=== PATIENT | female | born 1960 | race Caucasian/White ===

== ENCOUNTER 2019-04-11 12:56 | Inpatient (IN) | payer BC ==
[~2019-04-11] VITALS: Ht 170.2 cm; Wt 90.6 kg
[2019-04-11] VITALS (8 sets, daily range): BP systolic 139–159; BP diastolic 53–86
--- NOTE | 2019-04-11 13:54 | NUR ---
ATTEMPTED ISTAT AT BEDSIDE, INSUFFICIENT SUPPLY POPPED UP
[2019-04-11 14:16] LABS: BASOPHILS # (AUTO) 0.1 X10'3 (0-0.2); BASOPHILS % (AUTO) 1.1 % (0-1); EOSINOPHILS # (AUTO) 0.1 X10'3 (0-0.9); EOSINOPHILS % (AUTO) 1.1 % (0-6); LYMPHOCYTES # (AUTO) 0.9 X10'3 (1.1-4.8); LYMPHOCYTES % (AUTO) 10.9 % (21-51); MEAN CORPUSCULAR HEMOGLOBIN 13.4 PG (27.0-31.0); MEAN CORPUSCULAR HGB CONC 25.1 g/dL (33.0-36.5); MEAN CORPUSCULAR VOLUME 53.3 FL (78-98); MONOCYTES # (AUTO) 0.8 X10'3 (0-0.9); MONOCYTES % (AUTO) 10.5 % (2-12); NEUTROPHILS # (AUTO) 6.2 X10'3 (1.8-7.7); NEUTROPHILS % (AUTO) 76.4 % (42-75); PLATELET COUNT 325 X10'3 (140-440); RED BLOOD COUNT 2.25 X10'6 (4.20-5.60); RED CELL DISTRIBUTION WIDTH 23.1 % (11.5-14.5); WHITE BLOOD COUNT 8.1 X10'3 (4.5-11.0)
[2019-04-11 14:34] LABS: ALANINE AMINOTRANSFERASE 26 U/L (12-78); ALBUMIN 3.8 G/DL (3.4-5.0); ALBUMIN/GLOBULIN RATIO 1.1 (1.1-1.5); ALKALINE PHOSPHATASE 55 IU/L (46-116); ANION GAP 9 (8-16); ASPARTATE AMINO TRANSFERASE 13 U/L (10-37); BILIRUBIN,TOTAL 0.7 MG/DL (0.1-1.0); BLOOD UREA NITROGEN 27 MG/DL (7-18); CALCIUM 11.6 MG/DL (8.5-10.1); CHLORIDE 104 MMOL/L (99-107); CREATININE 1.59 MG/DL (0.40-0.90); GLUCOSE 126 MG/DL (70-104); POTASSIUM 4.2 MMOL/L (3.5-5.1); SODIUM 136 MMOL/L (135-145); TOTAL CARBON DIOXIDE 23.1 MMOL/L (24-32); TOTAL PROTEIN 7.2 G/DL (6.4-8.2); eGFR 33 ML/MIN
[2019-04-11 14:56] LABS: ANISOCYTOSIS 3+; HYPOCHROMASIA 3+; MICROCYTOSIS 3+; PLATELET ESTIMATE NORMAL; TOTAL CELLS COUNTED 100
[2019-04-11 14:57] LABS: ELLIPTOCYTES 1+; POLYCHROMASIA FEW; SCHISTOCYTES FEW; TEAR DROP CELLS FEW
[2019-04-11] MEDS ORDERED: HYDR12.55 PO (15:24)
[2019-04-11 15:50] LABS: PARTIAL THROMBOPLASTIN TIME > 153 SECONDS (22-32)
[2019-04-11 15:59] LABS: OCCULT BLOOD STOOL NEGATIVE (Neg)
--- NOTE | 2019-04-11 15:59 | NUR ---
PT TO CT VIA WHEELCHAIR WITH HOUSE MANAGER
[2019-04-11] MEDS ORDERED: ondansetron/PF 4mg/2ml inj IV PRN (16:45)
[2019-04-11] MEDS ORDERED: mag hydrox/Alum hydrox/simeth 30ml oral suspension PO PRN (16:45)
[2019-04-11] MEDS ORDERED: magnesium hydroxide 30ml (MOM) UD suspension PO PRN (16:45)
[2019-04-11] MEDS ORDERED: acetaminophen 325mg tablet PO PRN (16:45)
--- NOTE | 2019-04-11 16:54 | NUR ---
PT RETURNS FROM CT
--- NOTE | 2019-04-11 17:18 | NUR ---
INCREASED BLOOD RATE TO 200, IN AN ATTEMPT TO MEET THE 3 HR GOAL
[2019-04-11] MEDS ORDERED: furosemide 10 MG/1 ML 10ml inj IV ONE (18:05)
[2019-04-12] VITALS (14 sets, daily range): BP systolic 133–162; BP diastolic 50–70
[2019-04-12 02:18] LABS: BASOPHILS # (AUTO) 0.1 X10'3 (0-0.2); EOSINOPHILS # (AUTO) 0.1 X10'3 (0-0.9); EOSINOPHILS % (AUTO) 1.7 % (0-6); LYMPHOCYTES % (AUTO) 16.4 % (21-51); MEAN CORPUSCULAR HGB CONC 31.1 g/dL (33.0-36.5); MEAN CORPUSCULAR VOLUME 61.2 FL (78-98); MEAN PLATELET VOLUME 8.6 FL (7.4-10.4); MONOCYTES # (AUTO) 0.7 X10'3 (0-0.9); MONOCYTES % (AUTO) 11.9 % (2-12); NEUTROPHILS # (AUTO) 4.1 X10'3 (1.8-7.7); PLATELET COUNT 214 X10'3 (140-440); RED BLOOD COUNT 2.47 X10'6 (4.20-5.60); RED CELL DISTRIBUTION WIDTH 33.5 % (11.5-14.5)
[2019-04-12 02:23] LABS: HEMATOCRIT 15.1 % (35.0-45.0); HEMOGLOBIN 4.7 g/dl (12.0-16.0)
[2019-04-12 02:32] LABS: ALANINE AMINOTRANSFERASE 23 U/L (12-78); ALBUMIN 3.4 G/DL (3.4-5.0); ALBUMIN/GLOBULIN RATIO 1.1 (1.1-1.5); ALKALINE PHOSPHATASE 52 IU/L (46-116); ANION GAP 9 (8-16); ASPARTATE AMINO TRANSFERASE 14 U/L (10-37); BILIRUBIN,TOTAL 2.1 MG/DL (0.1-1.0); BLOOD UREA NITROGEN 28 MG/DL (7-18); BUN/CREATININE RATIO 19.9 (6.6-38.0); CALCIUM 11.2 MG/DL (8.5-10.1); CHLORIDE 105 MMOL/L (99-107); CREATININE 1.41 MG/DL (0.40-0.90); GLUCOSE 94 MG/DL (70-104); POTASSIUM 3.5 MMOL/L (3.5-5.1); SODIUM 138 MMOL/L (135-145); TOTAL CARBON DIOXIDE 23.8 MMOL/L (24-32); TOTAL PROTEIN 6.4 G/DL (6.4-8.2); eGFR 38 ML/MIN
--- NOTE | 2019-04-12 02:36 | NUR ---
H/H 4.7, 15.1 called resulted to [facility], received order of tranfusing 2 unit of blood
[2019-04-12 03:14] LABS: ANISOCYTOSIS 3+; HYPOCHROMASIA 3+; MICROCYTOSIS 2+; PLATELET ESTIMATE NORMAL; POLYCHROMASIA 2+
--- NOTE | 2019-04-12 06:36 | NUR ---
Problems reprioritized. Patient report given, questions answered & plan of care reviewed with Umang JIMENEZ.
--- NOTE | 2019-04-12 11:22 | NUR ---
Malnutrition consult, patient presents with normal muscle strength, eating 100% of regular diet, BLE mild edema, skin intact. No s/s of malnutrition at this time, will continue to follow per protocol. Addendum: 04/12/19 at [address] Amended: Links added.
[2019-04-12 11:30] LABS: HEMOGLOBIN 7.1 g/dl (12.0-16.0); RED CELL DISTRIBUTION WIDTH 34.8 % (11.5-14.5)
[2019-04-12 11:31] LABS: HEMATOCRIT 22.3 % (35.0-45.0); MEAN CORPUSCULAR HEMOGLOBIN 21.4 PG (27.0-31.0); MEAN CORPUSCULAR HGB CONC 31.7 g/dL (33.0-36.5); MEAN CORPUSCULAR VOLUME 67.6 FL (78-98); PLATELET COUNT 218 X10'3 (140-440); RED BLOOD COUNT 3.31 X10'6 (4.20-5.60); WHITE BLOOD COUNT 6.4 X10'3 (4.5-11.0)
[2019-04-12] MEDS ORDERED: IRON1TAB93 PO (15:30)
[2019-04-12 16:21] LABS: HEMATOCRIT 28.6 % (35.0-45.0); MEAN CORPUSCULAR HGB CONC 31.6 g/dL (33.0-36.5); MEAN CORPUSCULAR VOLUME 69.7 FL (78-98); MEAN PLATELET VOLUME 9.1 FL (7.4-10.4); PLATELET COUNT 232 X10'3 (140-440); RED CELL DISTRIBUTION WIDTH 34.6 % (11.5-14.5)
--- NOTE | 2019-04-12 17:24 | NUR ---
patient discharged iv's taken out belongings accounted for called MD to update on current labs, patient in stable condition wheelchaired out of hospital with
== END 2019-04-12 17:20 | disposition home or self-care (01) | DRG 812 ==
LOC: ER 12:57 → PCU 3S 20:39
PROVIDERS: ADMIT Family Medicine; ATTEND Family Medicine
PROC: 30233N1 Transfusion of Nonautologous Red Blood Cells into Peripheral Vein, Percutaneous Approach (ICD-10-PCS; principal; 2019-04-11)
PROC: 30233N1 Transfusion of Nonautologous Red Blood Cells into Peripheral Vein, Percutaneous Approach (ICD-10-PCS; 2019-04-12)
DX: D64.9 Anemia, unspecified (principal); I10 Essential (primary) hypertension; Z80.1 Family history of malignant neoplasm of trachea, bronchus and lung; Z80.3 Family history of malignant neoplasm of breast; Z85.038 Personal history of other malignant neoplasm of large intestine; Z85.41 Personal history of malignant neoplasm of cervix uteri; Z87.891 Personal history of nicotine dependence
CPT/HCPCS: 36415; 71045; 71250; 74176; 80053; 82272; 83615; 84484; 85025; 85027; 85610; 85730; 86885; 86900; 86901; 86920; 87081; 93005; 96374; 99285; G0378; J1940; P9016